=== PATIENT | female | born 1965 | race Caucasian/White ===

== ENCOUNTER 2017-04-25 12:05 | Outpatient (CLI) | payer OTHER ==
--- NOTE | 2017-04-25 13:52 | RAD ---
LEFT FOOT THREE VIEWS: HISTORY: Evaluate for disability. Psoriasis. COMPARISON: None. FINDINGS: Lisfranc alignment is maintained. Joint spaces are preserved. No fracture. Mild degenerative sage e in the hindfoot. IMPRESSION: No evidence of erosive arthropathy. POS: [facility]
== END 2017-04-25 12:06 | disposition home or self-care (01) ==
LOC: NAV RAD 12:05
PROVIDERS: ATTEND Family Medicine
DX: L40.9 Psoriasis, unspecified (principal)